=== PATIENT | female | born 1960 | race Caucasian/White ===

== ENCOUNTER → 2019-11-13 | Outpatient (CLI) | payer OTHER | LOC: LAB 10:50 | DX: K52.832 Lymphocytic colitis (principal); R19.7 Diarrhea, unspecified; R15.2 Fecal urgency; R14.1 Gas pain ==

== ENCOUNTER → 2019-11-16 | Outpatient (CLI) | payer OTHER ==
[2019-11-25 14:37] LABS: CALPROTECTIN A
== END ==
LOC: LAB 10:08
DX: K52.832 Lymphocytic colitis (principal)

== ENCOUNTER 2022-10-15 09:25 | Outpatient (RCR) | payer OTHER | END 2022-11-01 | disposition home or self-care (01) | LOC: PT | DX: M41.86 Other forms of scoliosis, lumbar region (principal) ==